=== PATIENT | female | born 1995 ===

== ENCOUNTER 2021-01-11 10:22 | Emergency (ER) | payer SELFPAY ==
[~2021-01-11] VITALS: Ht 167.6 cm; Wt 102.5 kg
[2021-01-11 12:21] LABS: HEMOGLOBIN 14.2 gm/dl (12.3-15.3); RED BLOOD COUNT 4.99 M/UL (4.00-5.10); WHITE BLOOD COUNT 3.2 K/UL (4.5-11.0)
[2021-01-11 12:45] LABS: BUN/CREATININE RATIO 18 (0-10)
== END 2021-01-11 17:05 | disposition home or self-care (01) ==
LOC: ER1 10:22
PROVIDERS: Emergency Medicine
DX: Z23 Encounter for immunization (principal); U07.1 COVID-19
CPT/HCPCS: 71045; 80053; 82550; 82553; 83605; 83874; 84484; 84703; 85025; 85379; 87040; 93005; 99284; M0243